=== PATIENT | female | born 2000 | race Caucasian/White ===

== ENCOUNTER 2024-02-05 14:20 | Emergency (ER) | payer MEDICAID, SELFPAY ==
--- NOTE | ~2024-02-05 | CT_ITS ---
EXAMINATION: CT HEAD WITHOUT CONTRAST CLINICAL INFORMATION: Headaches and dizziness and nausea and vomiting COMPARISON: None available. TECHNIQUE: Contiguous axial imaging was performed from the skull base to vertex without intravenous administration of contrast. This CT examination was performed using dose optimization techniques as appropriate, variously including the following: *Automated exposure control *Adjustment of mA and/or kV according to patient size (this includes techniques or standardized protocols for targeted exams where dose is matched to indication/reason for exam; i.e. extremities or head) *Use of iterative reconstruction technique DLP: 630 mGy-cm FINDINGS: No intra or extra-axial fluid collection, hemorrhage, mass, or mass effect. Calvarium intact. CT/CT head/brain wo IV con IMPRESSION: No acute intracranial pathology.
[2024-02-05 14:24] VITALS: BP 142/87; BP 153/107; PULSE 87; PULSE 88; RESP 18; TEMP 36.3; O2SAT 100; O2SAT 97; BMI 49.9
--- NOTE | 2024-02-05 14:24 | ED.DIZZY ---
HPI - Dizziness General Chief Complaint: Dizziness Stated Complaint: LIGHTHEADED, DIZZY, NAUSEA Time Seen by Provider: 02/05/24 21:00 History of Present Illness HPI Narrative: The patient is a normally healthy 23-year-old female on no medications who was at work today. 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 She says she felt fine in the morning and had arrived at work at 08:30. At around 13:00 she was working on her computer screen when she started to feel a pressure-like discomfort in her head that was associated with some dizziness and photophobia. She told her coworkers that she was feeling unwell and eventually she was advised to come to the hospital. She arrived here by ambulance. While waiting to be seen she was given a dose of ondansetron for nausea. She had a long wait and after 5 hours of waiting to be seen by a provider her headache has improved significantly. There is no associated neck stiffness. No fever, sweats, chills. She has not on control pills. She has no history of migraines or headaches. She has never had an episode like this before. She is unaware of any family history of migraines. She is unaware of any family history of aneurysms. Related Data Allergies Allergy/AdvReac Type Severity Reaction Status Date / Time No Known Allergies Allergy Unverified 02/05/24 14:30 [No Known Allergies*] Review of Systems Review of Systems: Yes all other systems are reviewed and are negative [facility] Social History Social History Advance Directives: No Advance Directives Information Provided: No Physical Exam Vital Signs: Vital Signs: Last Vital Signs Temp 98 F 02/05/24 18:50 Pulse 80 02/05/24 18:50 Resp 18 02/05/24 18:50 BP 138/76 02/05/24 18:50 Pulse Ox 99 02/05/24 18:50 O2 Del Method Room Air 02/05/24 18:50 BMI result Body Mass Index 49.9 Const: Other: The patient is awake, alert, pleasant, cooperative. She does not appear in any distress. She looks quite well. HEENT: Other: Face is symmetrical. Mucous membranes moist. Eyes: Other: Pupils are round equal, conjunctivae clear, funduscopic exam was unremarkable, extraocular movements intact Neck: Other: The neck is entirely supple. She can touch her chin to her chest easily without any apparent discomfort. Resp: Effort & Inspection: normal respiratory effort Auscultation: clear to auscultation bilaterally Cardio: Rate: regular rate Rhythm: regular rhythm Heart sounds: S1 normal heart sound present and S2 normal heart sound present Skin: Other: Skin is dry and unremarkable Neuro: Other: The patient is awake and alert with a normal mental status. Cranial nerves 2-12 are intact. She has symmetrical strength in all 4 extremities. No pronator drift. She is neurologically intact. Extrem: Other: No peripheral edema Course Course Course Narrative: This is a rapid medical exam completed by Raissa [employer]GER: Additional HPI, ROS, PE not included below will be deferred to primary provider. From [employer] working as a information receptionist when she had sudden onset nausea, dizziness, head pressure, photophobia. No vomiting and reports headache symptoms have lessened. Received zofran en route by EMS. Concerns of recent abnormal menses. Medications Administered Discontinued Medications Generic Name Dose Route Start Last Admin Trade Name Freq PRN Reason Stop Dose Admin Ketorolac Tromethamine 15 mg 02/05/24 14:26 02/05/24 14:31 Ketorolac Tromethamine 15 Mg/Ml Vial IVPUSH 02/05/24 14:27 15 mg ONCE ONE Administration Medical Decision Making Medical Decision Making [facility] Narrative: The patient is an ordinarily healthy 23-year-old who was on no medications and who was not on control who presents with a headache that occurred while she was at work. She was working at a computer screen when symptoms began. There has been no associated fever or other symptoms. There was associated photophobia. She was sent to the hospital by ambulance. She was given ondansetron and feels significantly better. She had a head CT that was done at around 16:00, within approximately 3 hours of the onset of her headache symptoms. This was a noncontrast head CT. It was negative. Given my low suspicion for a subarachnoid hemorrhage and a negative head CT done within 6 hours I think it is not likely she has a subarachnoid hemorrhage. At the moment she feels much better without significant treatment, her headache is resolved, her neck is supple. I suspect this was a migraine phenomenon. Lab Data 02/05/24 14:51 02/05/24 14:51 Labs: Lab Results 02/05/24 02/05/24 Range/Units 14:51 15:02 WBC 8.9 (4.8-10.8) X10*3/uL RBC 4.81 (4.20-5.50) X10*6/uL Hgb 13.9 (12.0-16.0) g/dl Hct 39.5 (37.0-47.0) % MCV 82.1 (80.0-98.0) fL MCH 28.9 (27.0-33.0) pg MCHC 35.2 H (31.0-35.0) g/dl RDW 12.4 (11.0-16.0) % Plt Count 279 (160-400) X10*3/uL MPV 10.4 (9.4-12.3) fL Immature Gran % (Auto) 0.2 (0.0-0.4) % Neut % (Auto) 54.3 (45-73) % Lymph % (Auto) 34.9 (20-40) % Hitchcock % (Auto) 9.2 (2-11) % Eos % (Auto) 0.9 (0-4) % Baso % (Auto) 0.5 (0-2) % Lymph # (Auto) 3.1 (1.2-4.9) X10*3/uL Hitchcock # (Auto) 0.8 (0.1-1.2) X10*3/uL Eos # (Auto) 0.1 (0.0-0.4) X10*3/uL Baso # (Auto) 0.0 (0.0-0.2) X10*3/uL Abs Immat Gran (auto) 0.02 (0.00-0.03) X10*3/uL Absolute Neuts (auto) 4.8 (2.0-8.3) x10*3/uL Absolute Nucleated RBC 0.000 (0.0-0.012) X10*3/uL Nucleated RBC % (auto) 0.0 (0.0-0.2) /100WBC Sodium 139 (135-145) mmol/L Potassium 4.2 (3.3-5.1) mmol/L Chloride 106 (96-108) mmol/L Carbon Dioxide 24 (22-29) mmol/L Anion Gap 13 (12-20) BUN 14 (9-16) mg/dL Creatinine 0.75 (0.5-1.4) mg/dL Estim Creat Clear Calc 133.3 Estimated GFR > 60 Random Glucose 99 (60-115) mg/dL Calcium 9.2 (8.4-10.2) mg/dL Magnesium 1.9 (1.6-2.6) mg/dL Total Bilirubin 0.3 (0.0-1.0) mg/dL AST 13 (5-31) U/L ALT 9 (0-31) U/L Alkaline Phosphatase 74 (39-117) U/L Total Protein 7.6 (6.5-8.0) g/dL Albumin 4.2 (3.5-5.0) g/dL Urine Color Yellow Urine Appearance Clear Urine pH 7.5 (5.0-9.0) Ur Specific [place] 1.025 (1.005-1.025) Urine Protein Negative (Neg-Trace) mg/dL Urine Glucose (UA) Negative (Negative) mg/dL Urine Ketones Negative (Negative) mg/dL Urine Blood Negative (Negative) Urine Nitrite Negative (Negative) Ur Leukocyte Esterase Negative (Negative) Urine RBC 0-2 (0-2) /HPF Urine WBC 0-5 (0-5) /HPF Ur Squamous Epith Cells 0-2 (0-2) /HPF Urine Bacteria None Seen (None Seen) Hyaline Casts 0-2 (0-2) /LPF Urine Test NEGATIVE (NEGATIVE) Discharge Plan Discharge Clinical Impression: Headache, Dizziness Patient Disposition: Home, Self-Care Additional Instructions: Your testing in the emergency room today seems reassuring. I think it is unlikely your headache represented a dangerous process. This may have been a first-time migraine phenomenon. Please rest and take it easy tonight. Drink lot of fluids. Please plan on following up with your regular doctor to discuss this episode further. Return to the emergency room if significantly worse Referrals: Juana Singleton MD [Primary Care Provider] - (headache, suspect migraine syndrome) Print Language: Persian
[2024-02-05] MEDS: Ketorolac Tromethamine 15 MG/ML VIAL IVPUSH (14:31)
[2024-02-05 14:57] LABS: MANUAL DIFF FLAG NO
[2024-02-05 14:58] LABS: Basophils Percent Auto 0.5 % (0-2); Eosinophils Absolute Auto 0.1 X10*3/uL (0.0-0.4); Eosinophils Percent Auto 0.9 % (0-4); Hematocrit 39.5 % (37.0-47.0); Hemoglobin 13.9 g/dl (12.0-16.0); Imm Gran Abs Auto 0.02 X10*3/uL (0.00-0.03); Imm Gran Pct Auto 0.2 % (0.0-0.4); Lymphocytes Absolute Auto 3.1 X10*3/uL (1.2-4.9); Lymphocytes Percent Auto 34.9 % (20-40); Mean Corpuscular HGB Conc 35.2 g/dl (31.0-35.0); Mean Corpuscular Hemoglobin 28.9 pg (27.0-33.0); Mean Corpuscular Volume 82.1 fL (80.0-98.0); Mean Platelet Volume 10.4 fL (9.4-12.3); Monocytes Absolute Auto 0.8 X10*3/uL (0.1-1.2); Monocytes Percent Auto 9.2 % (2-11); Neutrophils Absolute Auto 4.8 x10*3/uL (2.0-8.3); Neutrophils Percent Auto 54.3 % (45-73); Platelet Count 279 X10*3/uL (160-400); Red Blood Count 4.81 X10*6/uL (4.20-5.50); Red Cell Distribution Width 12.4 % (11.0-16.0); White Blood Count 8.9 X10*3/uL (4.8-10.8)
[2024-02-05 15:14] LABS: Alanine Aminotransferase 9 U/L (0-31); Albumin Level 4.2 g/dL (3.5-5.0); Alkaline Phosphatase 74 U/L (39-117); Anion Gap 13 (12-20); Aspartate Amino Transferase 13 U/L (5-31); Bilirubin Total 0.3 mg/dL (0.0-1.0); Blood Urea Nitrogen 14 mg/dL (9-16); Calcium 9.2 mg/dL (8.4-10.2); Carbon Dioxide 24 mmol/L (22-29); Chloride 106 mmol/L (96-108); Creatinine Clr Calc Pharmacy 133.3; Estimated Glomerular Filt Rate > 60; Glucose Random 99 mg/dL (60-115); Magnesium 1.9 mg/dL (1.6-2.6); Potassium 4.2 mmol/L (3.3-5.1); Sodium 139 mmol/L (135-145); Total Protein 7.6 g/dL (6.5-8.0)
[2024-02-05 15:36] LABS: Appearance Urine Clear; Color Urine Yellow; Glucose Urine UA Negative (Negative); Leukocyte Esterase Urine Negative (Negative); Nitrite Urine Negative (Negative); PH 7.5 (5.0-9.0); Specific Gravity - Urine 1.025 (1.005-1.025); Urine Blood Negative (Negative); Urine Ketones Negative (Negative); Urine Protein Negative (Neg-Trace)
[2024-02-05 15:38] LABS: UPreg QC Valid YES; Urine Pregnancy NEGATIVE (NEGATIVE)
[2024-02-05 15:41] LABS: Bacteria Urine None Seen (None Seen); Hyaline Casts Urine 0-2 /LPF (0-2); RBC Urine 0-2 /HPF (0-2); Squamous Epithelial Cell Urine 0-2 /HPF (0-2); WBC Urine 0-5 /HPF (0-5)
[2024-02-05 18:50] VITALS: BP 138/76; PULSE 80; RESP 18; TEMP 36.6; O2SAT 99
[2024-02-05 21:11] VITALS: BP 138/76; PULSE 84; RESP 18; TEMP 36.4; O2SAT 99
[2024-02-05 21:23] VITALS: BP 138/76; PULSE 84; RESP 18; TEMP 36.4; O2SAT 99
== END 2024-02-05 21:24 | disposition home or self-care (01) ==
PROVIDERS: Nurse Practitioner Family; Emergency Provider Emergency Medicine; PCP General Practice
DX: R42 Dizziness and giddiness (principal); R11.0 Nausea; R51.9 Headache, unspecified; Z79.899 Other long term (current) drug therapy
CPT/HCPCS: 36415; 70450; 80053; 81001; 81025; 83735; 85025; 99283; 99284; J1885

== ENCOUNTER 2024-04-08 17:47 | Emergency (ER) | payer MEDICAID, SELFPAY ==
[2024-04-08 17:56] VITALS: BP 142/82; PULSE 99; RESP 16; TEMP 36.9; O2SAT 97; BMI 33.5
--- NOTE | 2024-04-08 18:04 | ED.GENADULT ---
HPI - General Adult General Chief complaint: Eye Problems Stated complaint: pink eye, sore throat Time Seen by Provider: 04/08/24 18:22 Related Data Previous Rx's ?Medication ?Instructions ?Recorded amoxicillin 500 mg tablet 500 mg PO TID 10 days #30 tabs 04/08/24 erythromycin 5 mg/gram (0.5 %) eye 0.5 inch ophthalmic (eye) QID #3.5 04/08/24 ointment grams Allergies Allergy/AdvReac Type Severity Reaction Status Date / Time No Known Allergies Allergy Verified 04/08/24 17:59 [No Known Allergies*] Review of Systems Review of Systems: Yes all other systems are reviewed and are negative PMF[facility] Social History Social History Advance Directives: No Advance Directives Information Provided: No Physical Exam ED Vital Signs: Vital Signs - 24 hr 04/08/24 17:56 04/08/24 19:19 Temperature 98.4 F 98.4 F Pulse Rate 99 99 Respiratory Rate 16 16 Blood Pressure 142/82 H 142/82 H Pulse Oximetry 97 97 Oxygen Delivery Method Room Air Room Air BMI result Body Mass Index 33.5 Const Other: The patient is awake, alert, pleasant, cooperative. She has some obvious redness to the right eye but otherwise does not appear acutely ill. HENMT Other: Some slight injection to the posterior pharynx. Airway clear. Tympanic membranes are normal bilaterally. Eyes Other: There is injection to the right conjunctiva. Some slight perilimbic flushing on slit-lamp exam. The cornea looks very clear. The anterior chamber looks very clear. Pupils are equal and briskly reactive. Neck Other: No dramatic adenopathy. Resp Effort & Inspection: normal respiratory effort Auscultation: clear to auscultation bilaterally Cardio Rate: regular rate Rhythm: regular rhythm Heart sounds: S1 normal heart sound present and S2 normal heart sound present Skin Other: No rash Neuro Other: The patient is awake, alert, appropriate, nontoxic. Mental status is normal. She is grossly neurologically intact. Course Course Course Narrative: RME: done by CHARIS Ventura. 23-year-old female presents to ED for right eye conjunctivitis since Friday. Patient is placed on antibiotic ointment for only the past 2 days. Patient's secondary complaint is sore throat and right ear pain. Patient denies any change in vision. Patient denies any chest pain or shortness of breath. Strep ordered. Medications Administered Discontinued Medications Generic Name Dose Route Start Last Admin Trade Name Kiersten PRN Reason Stop Dose Admin Amoxicillin 500 mg 04/08/24 18:49 04/08/24 19:05 Amoxicillin 500 Mg Capsule PO 04/08/24 18:50 500 mg ONCE ONE Administration Erythromycin 1 cm 04/08/24 18:47 04/08/24 19:05 Erythromycin Base 0.5% Oph Oin 1 Gm Tube EYE-RIGHT 04/08/24 18:48 1 cm ONCE ONE Administration Medical Decision Making Medical Decision Making [facility] Narrative: The patient presents with worsening right eye conjunctivitis despite polymyxin/trimethoprim drops. She is also complaining of a sore throat and left ear pain. A strep throat swab was sent that is positive. She will be started on amoxicillin 500 mg t.i.d. and she will be started on erythromycin ointment 4 times a day. Lab Data Labs: Lab Results 04/08/24 Range/Units 18:21 Influenza Type A (PCR) NEGATIVE (Negative) Influenza Type B (PCR) NEGATIVE (Negative) RSV RNA Qual (PCR) NEGATIVE (Negative) SARS-CoV-2 RNA (RT-PCR) NEGATIVE (Negative) S. pyogenes GrpA KELSY Positive A (Negative) Discharge Plan Discharge Clinical Impression: Strep throat, Conjunctivitis Patient Disposition: Home, Self-Care Instructions: Strep Throat (ED), Conjunctivitis (ED) Additional Instructions: Both you and your son have tested positive for strep throat. Please take the amoxicillin 3 times a day until done. Please finish the entire prescription. Please also administer the antibiotic ointment. This should be done 4 times a day, approximately every 6 hours. Please stay in touch with your regular doctor for additional advice as needed. Return to the emergency room if worse. Prescriptions: New amoxicillin 500 mg tablet 500 mg PO TID 10 Days Qty: 30 0RF erythromycin 5 mg/gram (0.5 %) ointment 0.5 inch ophthalmic (eye) QID Qty: 3.5 0RF Referrals: Juana Singleton MD [Primary Care Provider] - (Strep throat/conjunctivitis) Stand Alone Forms: Work/School Release Interventions: ED Discharge Assessment Last Done: 04/08/24 19:19 Discharge Date/Time: 04/08/24 19:19 Print Language: French
[2024-04-08 18:33] LABS: IDNOW Serial# 08D9AD1C; Strep A Nucleic Acid Positive (Negative)
--- NOTE | 2024-04-08 18:57 | ED.GENADULT ---
HPI - General Adult General Chief complaint: Eye Problems Stated complaint: pink eye, sore throat Time Seen by Provider: 04/08/24 18:22 History of Present Illness ED Provider: Calvin PEREIRA narrative: The patient is an ordinarily healthy 23-year-old who has had problems with right eye redness, sore throat, and left ear pain for about 3 days. Her 8-year-old son has had a very similar syndrome. Both of the went to an urgent care 2 days ago and they were started on a trimethoprim/polymyxin eyedrops for conjunctivitis. The mother says they have gotten worse since then. No definite fever. No visual change. Related Data Previous Rx's ?Medication ?Instructions ?Recorded amoxicillin 500 mg tablet 500 mg PO TID 10 days #30 tabs 04/08/24 erythromycin 5 mg/gram (0.5 %) eye 0.5 inch ophthalmic (eye) QID #3.5 04/08/24 ointment grams Allergies Allergy/AdvReac Type Severity Reaction Status Date / Time No Known Allergies Allergy Verified 04/08/24 17:59 [No Known Allergies*] Review of Systems Review of Systems: Yes all other systems are reviewed and are negative [facility] Social History Social History Advance Directives: No Advance Directives Information Provided: No Physical Exam ED Vital Signs: Vital Signs - 24 hr 04/08/24 17:56 04/08/24 19:19 Temperature 98.4 F 98.4 F Pulse Rate 99 99 Respiratory Rate 16 16 Blood Pressure 142/82 H 142/82 H Pulse Oximetry 97 97 Oxygen Delivery Method Room Air Room Air BMI result Body Mass Index 33.5 Const Other: The patient is awake and alert. She has obvious right eye conjunctivitis but otherwise does not look acutely ill. HENMT Other: Tympanic membranes are normal bilaterally. The posterior pharynx may have some mild injection. Eyes Other: There is injection to the right conjunctiva. Some slight perilimbic flushing on slit-lamp exam. The cornea looks very clear. The anterior chamber looks very clear. Pupils are equal and briskly reactive. Neck Other: No significant adenopathy Resp Effort & Inspection: normal respiratory effort Auscultation: clear to auscultation bilaterally Cardio Rate: regular rate Rhythm: regular rhythm Heart sounds: S1 normal heart sound present and S2 normal heart sound present Skin Other: Skin is dry and unremarkable, no rash Neuro Other: The patient is awake, alert, pleasant, cooperative. Nontoxic. Mental status is normal. Cranial nerves are grossly intact. She moves her extremities normally and seems grossly neurologically intact. Extrem Other: No peripheral edema Medications Administered Discontinued Medications Generic Name Dose Route Start Last Admin Trade Name Kiersten PRN Reason Stop Dose Admin Amoxicillin 500 mg 04/08/24 18:49 04/08/24 19:05 Amoxicillin 500 Mg Capsule PO 04/08/24 18:50 500 mg ONCE ONE Administration Erythromycin 1 cm 04/08/24 18:47 04/08/24 19:05 Erythromycin Base 0.5% Oph Oin 1 Gm Tube EYE-RIGHT 04/08/24 18:48 1 cm ONCE ONE Administration Medical Decision Making Medical Decision Making [facility] Narrative: The patient presents with worsening right eye conjunctivitis despite polymyxin/trimethoprim drops. She is also complaining of a sore throat and left ear pain. A strep throat swab was sent that is positive. She will be started on amoxicillin 500 mg t.i.d. and she will be started on erythromycin ointment 4 times a day. Lab Data Labs: Lab Results 04/08/24 Range/Units 18:21 Influenza Type A (PCR) NEGATIVE (Negative) Influenza Type B (PCR) NEGATIVE (Negative) RSV RNA Qual (PCR) NEGATIVE (Negative) SARS-CoV-2 RNA (RT-PCR) NEGATIVE (Negative) S. pyogenes GrpA KELSY Positive A (Negative) Discharge Plan Discharge Clinical Impression: Strep throat, Conjunctivitis Patient Disposition: Home, Self-Care Instructions: Strep Throat (ED), Conjunctivitis (ED) Additional Instructions: Both you and your son have tested positive for strep throat. Please take the amoxicillin 3 times a day until done. Please finish the entire prescription. Please also administer the antibiotic ointment. This should be done 4 times a day, approximately every 6 hours. Please stay in touch with your regular doctor for additional advice as needed. Return to the emergency room if worse. Prescriptions: New amoxicillin 500 mg tablet 500 mg PO TID 10 Days Qty: 30 0RF erythromycin 5 mg/gram (0.5 %) ointment 0.5 inch ophthalmic (eye) QID Qty: 3.5 0RF Referrals: Juana Singleton MD [Primary Care Provider] - (Strep throat/conjunctivitis) Stand Alone Forms: Work/School Release Interventions: ED Discharge Assessment Last Done: 04/08/24 19:19 Discharge Date/Time: 04/08/24 19:19 Print Language: Citizen [place]
[2024-04-08] MEDS: Amoxicillin 500 MG CAPSULE PO (19:05)
[2024-04-08] MEDS: Erythromycin Base 0.5% Oph Oin 1 GM TUBE 1 CM EYE-RIGHT (19:05)
[2024-04-08 19:10] LABS: Influenza A PCR NEGATIVE (Negative); Influenza B PCR NEGATIVE (Negative); Resp Syncy Virus RNA Qual PCR NEGATIVE (Negative); SARS COV2 PCR INHOUSE NEGATIVE (Negative)
[2024-04-08 19:19] VITALS: BP 142/82; PULSE 99; RESP 16; TEMP 36.9; O2SAT 97
== END 2024-04-08 19:19 | disposition home or self-care (01) ==
PROVIDERS: Emergency Provider Emergency Medicine; PCP General Practice
DX: J02.0 Streptococcal pharyngitis (principal); H10.89 Other conjunctivitis; Z03.818 Encounter for observation for suspected exposure to other biological agents ruled out
CPT/HCPCS: 0241U; 87651; 99282; 99283

== ENCOUNTER 2024-08-12 | Outpatient (REF) | payer MEDICAID, SELFPAY ==
[2024-08-17 14:33] LABS: C. trachomatis RNA TMA NOT DETECTED (NOT DETECTED); N. gonorrhoeae RNA TMA NOT DETECTED (NOT DETECTED); Trichomonas (NAAT) NOT DETECTED (NOT DETECTED)
== END 2024-08-12 00:01 | disposition home or self-care (01) ==
LOC: HO.LNP
PROVIDERS: Visit Provider Advanced Practice Midwife
DX: Z12.4 Encounter for screening for malignant neoplasm of cervix (principal); Z11.3 Encounter for screening for infections with a predominantly sexual mode of transmission; N93.0 Postcoital and contact bleeding
CPT/HCPCS: 87491; 87591; 87661; 88175

== ENCOUNTER 2024-08-13 09:14 | Outpatient (REF) | payer MEDICAID, SELFPAY ==
[2024-08-13 11:51] LABS: Hematocrit 37.7 % (37.0-47.0); Hemoglobin 13.1 g/dl (12.0-16.0); Mean Corpuscular HGB Conc 34.7 g/dl (31.0-35.0); Mean Corpuscular Hemoglobin 27.9 pg (27.0-33.0); Mean Corpuscular Volume 80.4 fL (80.0-98.0); Mean Platelet Volume 11.1 fL (9.4-12.3); Platelet Count 284 X10*3/uL (160-400); Red Blood Count 4.69 X10*6/uL (4.20-5.50); Red Cell Distribution Width 12.6 % (11.0-16.0); White Blood Count 8.8 X10*3/uL (4.8-10.8)
[2024-08-13 12:28] LABS: TSH reflex Free T4 1.13 uIU/mL (0.32-4.0)
== END 2024-08-13 09:15 | disposition home or self-care (01) ==
LOC: HO.HHCL 09:14
PROVIDERS: Visit Provider Advanced Practice Midwife
DX: N93.0 Postcoital and contact bleeding (principal)
CPT/HCPCS: 36415; 84443; 85027

== ENCOUNTER 2024-08-20 13:13 | Outpatient (REF) | payer MEDICAID, SELFPAY ==
--- NOTE | ~2024-08-20 | US_ITS ---
EXAMINATION: US PELVIS CLINICAL INFORMATION: Abnormal. COMPARISON: None available. TECHNIQUE: Ultrasound of the pelvis is performed using both transabdominal and transvaginal transducers along with Doppler. Transvaginal imaging is performed due to inadequate visualization transabdominally. FINDINGS: Uterus: The uterus is anteverted and measures 11.8 x 4.5 x 6.2 cm. The double wall endometrial thickness is 0.8 mm. The uterus is smooth in contour and has normal myometrial echogenicity. No visible fibroid. Adnexa: Both ovaries are visualized. There is normal color flow to the adnexa. There is no ovarian torsion. There is no pelvic ascites or fluid collection. Right ovary measures 4.2 x 2.4 x 2.9 cm. Volume measured 15.3 mL Left ovary measures 3.0 x 1.9 x 1.9 cm. The volume measured 5.7 mL US/US pelvic and transvaginal IMPRESSION: No abnormal findings Electronically signed by: Agustina Doty MD 08/20/2024 04:07 PM [facility]
== END 2024-08-20 13:14 | disposition home or self-care (01) ==
LOC: HO.US 13:13
PROVIDERS: PCP General Practice; Visit Provider Advanced Practice Midwife
DX: N93.9 Abnormal uterine and vaginal bleeding, unspecified (principal)
CPT/HCPCS: 76830; 76856

== ENCOUNTER 2025-06-03 08:06 | Outpatient (REF) | payer MEDICAID, SELFPAY ==
--- OUTSIDE RECORDS SUMMARY | 2025-06-03 08:28 | XMS_ITS | Encounter Summary ---
Author Organization [employer] Address [address] [facility] 7t [place] [address] Care Team Providers Care Survey Crew Chief Name Role Phone Juana Singleton MD Primary Care Provider [phone] Encounter Details Date Type Department Care Team ([facility] st Contact Info) Description 12/31/2023 Orders Only [facility] MEDICINE [address] [place], [place] [phone] Juana Singleton MD [address] [place], [place] [phone] Social History Tobacco Use Types Packs/Day Years Used Date Smoking Tobacco: Never Smokeless Tobacco: Never Alcohol Use Standard Drinks/Week Comments Never 0 (1 standard drink = 0.6 oz pur e alcohol) Depression Answer Date Recorded Patient Health Questionnaire-9 Score 0 12/12/2023 Patient Health Questionnaire-9 Score 0 12/12/2023 Last PHQ-9: Questionnaire Data Not on file 0 12/12/2023 Housing Stability Answer Date Recorded What is your housing situation today? I have lastmateusz menendez 12/05/[address] you li ve. Do you have problems with any of the following? None of the above 12/05/2023 Food Insecurity Answer Date Recorded Within the past 12 months, y ou worried that your food would run out before you got money to buy more: Never True 12/05/2023 Within the past 12 months,th e food you bought just didn't last and you didn't have enough money to get more: Never True 10/2023 Transportation Answer Date Recorded In the past 12 months, has l ack of transportation kept you from medical appts, meetings, work or from getting things needed for daily living? Yes, it has kept me from medical appointments or getting medications. 12/12/2023 Utilities Answer Date Recorded In the past 12 months, has t he electric, gas, oil or water company threatened to shut off services in your home? No 12/05/2023 Depression Answer Date Recorded Patient Health Questionnaire-2 Score 0 12/12/2023 Comments No Sex and Gender Information Value Date Recorded Sex Assigned at Female 11/12/2023 8:56 AM EST Legal Sex Female 8:55 AM EST Gender Identity Female 11/12/2023 8:56 AM EST Sexual Orientation Straight 11/12/2023 8: 56 AM EST documented as of this encounter Plan of Treatment Upcoming Encounters Date Type Department Care Team (Late st Contact Info) Description 08/03/2025 4:00 PM EDT Telemedicine [facility] MEDICINE [address] [place], [place] [phone] Juana Singleton MD [address] [place] [address] documented as of this encounter Procedures Procedure Name Priority Date/Time Associated Diagnosis Comments STREP A NUCLEIC ACID Routine 04/08/2024 6:21 PM EDT SARS COV2/INFLUENZA A/B AND RSV RNA QL NAAT Routine 04/08/2024 6:21 PM EDT URINALYSIS, COMPLETE, WITH REFLEX TO CULTURE Routine 02/05/2024 3:02 PM EDT HCG, QL, URINE Routine 02/05/2024 3:02 PM EDT CBC WITH AUTO DIFFERENTIAL Routine 02/05/2024 2:51 PM EDT MAGNESIUM Routine 02/05/2024 2:51 PM EDT COMPREHENSIVE METABOLIC PANEL Routine 02/05/2024 2:51 PM EDT documented in this encounter Results * SARS-CoV-2 RNA, Influenza A/B, and RSV RNA, Ql NAAT (04/08/2024 6:21 PM EDT) Influenza A PCR NEGATIVE Negative [facility] Influenza B PCR NEGATIVE Negative [facility] Resp Syncy Virus RNA Qual PCR NEGATIVE Negative [facility] SARS COV2 PCR NEGATIVE Negative [facility] Comment:All test results mus t be correlated with clinical findings.Negative results do not preclude SARS-CoV2, influenza Avirus, influenza B virus and/or RSV infectionand should not be used as the sole basis for treatment orother patient management decisions. Negative results must becombined with clinical observations, patient history, andepidemiological information.This test has not been evaluated for monitoring treatment ofinfection.This test has been authorized by the FDA under an EmergencyUse Authorization (EUA) for use by authorized laboratories.Testing performed on the mPort GeneXpert utilizingreal-time RT-PCR.All SARS CoV2 and positive influenza A/B results arereported to [facility]. 04/08/2024 6:21 PM EDT 04/08/2024 6:23 PM EDT [email or web address] External Data Provider LAB MICROBIOLOGY - GENERAL ORDERABLES Final Result Performing Organization Address City/[facility] Co de Phone Number [facility] [address] [place] [phone] * (ABNORMAL) Strep A Nucleic Acid (04/08/2024 6:21 PM EDT) IDNOW SERIAL# [id number] [facility] Strep A Nucleic Acid Positive(A ) Negative [facility] Comment:All test results mus t be correlated with clinical findings.This test has not been evaluated for monitoring treatment ofinfection.Additional follow-up testing using the culture method isrequired if the result is negative and clinical symptomspersist, or in the event of an acute rheumatic feveroutbreak. 04/08/2024 6:21 PM EDT 04/08/2024 6:23 PM EDT [email or web address] External Data Provider LAB MICROBIOLOGY - GENERAL ORDERABLES Final Result [facility] [address] [place] [address] [phone] * Urinalysis, Complete, with Reflex to Culture (02/05/2024 3:02 PM EDT) Color Urine Yellow [facility] Appearance Urine Clear [facility] PH 7.5 5.0 - 9.0 [facility] Glucose Urine UA Negative Negative mg/dL [facility] Urine Blood Negative Negative [facility] Specific Machias - Urine 1.025 1.005 - 1.025 [facility] Urine Protein Negative Neg-Trace mg/dL [facility] Urine Ketones Negative Negative mg/dL [facility] Nitrite Urine Negative Negative [facility] Leukocyte Esterase Urine Negative Negative [facility] RBC Urine 0-2 0 - 2 /HPF [facility] Urine WBC 0-5 0 - 5 /HPF [facility] Urine Squamous Epithelial Cell 0-2 0 - 2 /HPF [facility] Urine Bacteria None Seen None Seen [facility] Hyaline Casts, Urine 0-2 0 - 2 /LPF [facility] 02/05/2024 3:02 PM EDT 02/05/2024 3:08 PM EDT Narrative [facility] - 02/05/2024 3:45 PM EDT [id number], Clean Catch us Generic External Data Provider LAB URINE ORDERAB LES Final Result Performing Organization Address [facility]/ZIP Co de Phone Number [facility] [address] [place] [phone] * HCG, Qualitative, Urine (02/05/2024 3:02 PM EDT) Urine NEGATIVE NEGATIVE [facility] Comment:This test was develo ped to detect early . Falsenegative results may occur after the 5th - 7th week ofpregnancy when using this test method. If clinicallyindicated, consider a serum hCG. 02/05/2024 3:02 PM EDT 02/05/2024 3:08 PM EDT us Generic External Data Provider LAB URINE ORDERAB LES Final Result Performing Organization Address [facility]/ZIP Co de Phone Number [facility] [address] [place] [phone] * Magnesium (02/05/2024 2:51 PM EDT) Magnesium 1.9 1.6 - 2.6 mg/dL [facility] 02/05/2024 2:51 PM EDT 02/05/2024 2:55 PM EDT Generic External Data Provider LAB BLOOD ORDERAB LES Final Result Performing Organization Address [facility] Co de Phone Number [facility] [address] [place] [phone] * Comprehensive Metabolic Panel (02/05/2024 2:51 PM EDT) Sodium 139 135 - 145 mmol/L [facility] Potassium 4.2 3.3 - 5.1 mmol/L [facility] Chloride 106 96 - 108 mmol/L [facility] Carbon Dioxide 24 22 - 29 mmol/L [facility] Anion Gap 13 12 - 20 [facility] Urea Nitrogen (BUN) 14 9 - 16 mg/dL [facility] Creatinine, Serum 0.75 0.5 - 1.4 mg/dL [facility] Creatinine Clr Calc Pharmacy 133.3 [facility] Comment:Provided height and weight: 152.4 cm,115.9 kg.eGFR (calculated from the MDRD study equation) and eCrCl(calculated from the Cockcroft-Gault equation) are based ondifferent parameters and may not yield comparable results.If eCrCl result is absurd, please check patient'sheight/weight. Estimated Glomerular Filt Rate >60 [facility] Comment:NOTE: For -Am erican individuals, multiply the result by 1.210.Chronic Kidney Disease: Estimated GFR < 60 mL/min/[id number] Kidney Disease: Estimated GFR < 15 mL/min/1.73m2 Glucose 99 60 - 115 mg/dL [facility] Calcium 9.2 8.4 - 10.2 mg/dL [facility] Bilirubin, Total 0.3 0.0 - 1.0 mg/dL [facility] Aspartate Amino Transferase 13 5 - 31 U/L [facility] Alanine Aminotransferase 9 0 - 31 U/L [facility] Total Protein 7.6 6.5 - 8.0 g/dL [facility] Albumin Level 4.2 3.5 - 5.0 g/dL [facility] Alkaline Phosphatase 74 39 - 117 U/L [facility] 02/05/2024 2:51 PM EDT 02/05/2024 2:55 PM EDT us Generic External Data Provider LAB BLOOD ORDERAB LES Final Result [facility] [address] [place] [phone] * (ABNORMAL) CBC auto differential (02/05/2024 2:51 PM EDT) White Blood Count 8.9 4.8 - 10.8 X10*3/uL [facility] Red Blood Count 4.81 4.20 - 5.50 X10*6/uL [facility] Hemoglobin 13.9 12.0 - 16.0 g/dl [facility] Hematocrit 39.5 37.0 - 47.0 % [facility] Mean Corpuscular Volume 82.1 80.0 - 98.0 fL [facility] Mean Corpuscular Hemoglobin 28.9 27.0 - 33.0 pg [facility] Mean Corpuscular HGB Conc 35.2(H) 31.0 - 35.0 g/dl [facility] Red Cell Distribution Width 12.4 11.0 - 16.0 % [facility] Platelet Count 279 160 - 400 X10*3/uL [facility] Mean Platelet Volume 10.4 9.4 - 12.3 fL [facility] Neutrophils Percent Auto 54.3 45 - 73 % [facility] Imm Gran Pct Auto 0.2 0.0 - 0.4 % [facility] Lymphocytes Percent Auto 34.9 20 - 40 % [facility] Monocytes Percent Auto 9.2 2 - 11 % [facility] Eosinophils Percent Auto 0.9 0 - 4 % [facility] Basophils Percent Auto 0.5 0 - 2 % [facility] NRBC Pct Auto 0.0 0.0 - 0.2 /100WBC [facility] Neutrophils Absolute Auto 4.8 2.0 - 8.3 x10*3/uL [facility] Imm Gran Abs Auto 0.02 0.00 - 0.03 X10*3/uL [facility] Lymphocytes Absolute Auto 3.1 1.2 - 4.9 X10*3/uL [facility] Monocytes Absolute Auto 0.8 0.1 - 1.2 X10*3/uL [facility] Eosinophils Absolute Auto 0.1 0.0 - 0.4 X10*3/uL [facility] Basophils Absolute Auto 0.0 0.0 - 0.2 X10*3/uL [facility] NRBC Abs Auto 0.000 0.0 - 0.012 X10*3/uL [facility] 02/05/2024 2:51 PM EDT 02/05/2024 2:55 PM EDT us Generic External Data Provider LAB BLOOD ORDERAB LES Final Result [facility] [address] [place] [phone] documented in this encounter Visit Diagnoses Not on filedocumented in this encounter Additional Health Concerns Assessment Noted Time PHQ-9 Depression Total Score: 0 12/12/19 24 9:11 AM EST documented as of this encounter Care Teams Survey Crew Chief Relationship Specialty Start Date End Date Juana Singleton MD [address] [place] [address] PCP - General Family Medicine 12/12/23 documented as of this encounter
--- OUTSIDE RECORDS SUMMARY | 2025-06-03 08:28 | XMS_ITS | Encounter Summary ---
Author Organization [employer] Address [address] [facility] 7t [place] [address] Care Team Providers Care Community Midwife Name Role Phone Juana Singleton MD Primary Care Provider [phone] Reason for Visit * Reason Onset Date Comments Communication/APPT request 05/31/2025 Mariana ibanez walked into [facility] requesting appt with PCP for weight loss concerns. Patient stated I'd like to speak with PCP for inject-able weight loss medications I've been struggling to lose weight despite efforts including working out at home and trying diet plans. Based on my research, these medications have shown strong results when used alongside lifestyle changes FD stated to patient message will be forward to PCP for an FYI. Encounter Details Date Type Department Care Team ([facility] st Contact Info) Description 05/31/2025 Telephone [facility] [address] [place], [place] [phone] Juana Singleton MD [address] [place], [place] [phone] Communication/APPT request (Patient walked into [facility] requesting appt with PCP for weight loss concerns. Patient stated I'd like to speak with PCP for inject-able weight loss medications I've been struggling to lose weight despite efforts including working out at home and trying diet plans. Based on my research, these medications have shown strong results when used alongside lifestyle changes FD stated to patient message will be forward to PCP for an FYI.) Social History Tobacco Use Types Packs/Day Years Used Date Smoking Tobacco: Never Passive Smoke Exposure: Never Smokeless Tobacco: Never Alcohol Use Standard Drinks/Week Comments Never 0 (1 standard drink = 0.6 oz pur e alcohol) Depression Answer Date Recorded Patient Health Questionnaire-9 Score 0 12/12/2023 Patient Health Questionnaire-9 Score 0 12/12/2023 Last PHQ-9: Questionnaire Data Not on file 0 12/12/2023 Housing Stability Answer Date Recorded What is your housing situation today? I have last menendez 12/05/[address] you [...] AM EST documented as of this encounter Miscellaneous Notes * Telephone Encounter - Anna Dove - 05/31/2025 3:18 PM EDT Patient walked into [facility] requesting appt with PCP for weight loss concerns. Patient stated I'd liketo speak with PCP for inject-able weight loss medications I've been struggling to lose weight despite efforts including working out at home and trying diet plans. Based on my research, these medicatio ns have shown strong results when used alongside lifestyle changes FD stated to patient message will be forward to PCP for an FYI. Appt scheduled for 08/03/2025 with Mani, patient would like sooner appt. Patient verbally agreed. documented in this encounter Plan of Treatment Upcoming Encounters Date Type Department Care Team (Late st Contact Info) Description 08/03/2025 4:00 PM EDT Telemedicine [facility] MEDICINE [address] [place] [address] Juana Singleton MD [address] [place], [place] [phone] documented as of this encounter Visit Diagnoses Not on filedocumented in this encounter Additional Health Concerns Assessment Noted Time PHQ-9 Depression Total Score: 0 12/12/19 24 9:11 AM EST documented as of this encounter Care Teams Community Midwife Relationship Specialty Start Date End Date Juana Singleton MD [address] [place] [address] PCP - General Family Medicine 12/12/23 documented as of this encounter
--- OUTSIDE RECORDS SUMMARY | 2025-06-03 08:28 | XMS_ITS | Encounter Summary ---
Author Organization [employer] Address [address] [facility] 7t [place] [address] Care Team Providers Care Shuttle Repairer Name Role Phone Juana Singleton MD Primary Care Provider [phone] Encounter Details Date Type Department Care Team (Late st Contact Info) Description 01/07/2025 Orders Only [facility] MEDICINE [address] [place], [place] [phone] Corinna Pearson NP [address] [place] [address] Strep pharyngitis (Primary Dx) Social History Tobacco Use Types Packs/Day Years [...] Info) Description 08/03/2025 4:00 PM EDT Telemedicine [facility] MEDICINE [address] [place] [phone] Juana Singleton MD [address] [place] [address] documented as of this encounter Visit Diagnoses Diagnosis Strep pharyngitis- Primary documented in this encounter Additional Health Concerns Assessment Noted Time PHQ-9 Depression Total Score: 0 12/12/19 9:11 AM EST documented as of this encounter Care Teams Shuttle Repairer Relationship Specialty Start Date End Date Juana Singleton MD [address] [place] [phone] PCP - General Family Medicine 12/12/23 documented as of this encounter
--- OUTSIDE RECORDS SUMMARY | 2025-06-03 08:29 | XMS_ITS | Clinical Summary ---
Author Organization [employer] Address [address] [facility] [address] [place] [address] Care Team Providers Care Salesperson [employer] Name Role Phone Juana Singleton MD Primary Care Provider [phone] Allergies No known active allergies Medications SUMAtriptan (Imitrex) 50 MG tablet Take 1 tablet (50 mg) by mouth 1 (one) time if needed for migraine. May repeat dose once in 2 hours if no relief. Do not exceed 2 doses in 24 hours. 9 tablet 2 4 Active Blood Pressure kit 1 each 1 (one) time per week. 1 kit 4 Active Blood Pressure Monitoring (Omron 3 Series BP Monitor) device USE TO CHECK BLOOD PRESSURE ONCE A WEEK 4 Active Vienva 0.1-20 MG-MCG tablet Take 1 tablet by mouth Once per day. Active triamcinolone (Kenalog) 0.1 % creamIndications :Eczema, unspecified type APPLY TOPICALLY IN THE MORNING & AT BEDTIME NEEDED FOR PAIN AND SWELLING 30 g 2 5 Active Active Problems Problem Noted Date Diagnosed Date Chronic migraine 02/12/2024 Assessment & Plan (02/12/2024 1:57 PM EDT): With continued daily HAs -trial tramadol to break current migraine, advised go to ED if no relief -she agrees to start prophylaxis daily -advised start topamax 25 mg nightly and increase to 50 mg if no improvement -trial imitrex prn acute migraine -advised stay well-hydrated -reviewed avoiding migraine triggers -advised keep HIGUERA log and bring to next visit for review -advised rtc if sx change or worsen Eczema 12/12/2023 Encounter for routine adult health examination 0 12/12/2023 Assessment & Plan (12/12/2023 10:35 AM EST): STI tested in one year ago, does not need repeat VZV booster today Start HPV series today Pap due in 2024 History of pre-eclampsia 12/12/2023 Elevated blood pressure read ing in office without diagnosis of hypertension 12/12/2023 Assessment & Plan (02/12/2024 1:58 PM EDT): Repeat BP by me wnl -advised start home BP monitoring, Rx sent Assessment & Plan (12/12/2023 10:34 AM EST): Monitor at home, notify me if Bps consistently > 140/90 will start BP meds Obesity, unspecified 12/29/2006 Overview (03/19/2024): pedi endo 5-09 exogenous obesity F/u labs ,appt monthly Encounters Date Type Department Care Team Description 06/01/2025 Orders Only [facility] [address], [place] [phone] Juana Singleton MD Class 3 severe obesity without serious comorbidity with body mass index (BMI) of 45.0 to 49.9 in adult, unspecified obesity type (Primary Dx) 05/31/2025 Telephone [facility] [address] [place] [address] Juana Singleton MD Communication/APPT request (Patient walked into [facility] requesting [...] be forward to PCP for an FYI.) from Last 3 Months Immunizations Immunization Administration Dates Next Due DTaP 12/02/2002, 0,06/18/1999,03/20/1999,0 01/18/1999 DTaP / HiB / IPV 03/06/2000,06/18/1999, 9,01/18/1999 HPV 9-Valent 12/12/2023(Deferred: Other - vaccine took a while coming up from pharm) Hep B, Adolescent or Pediatric 06/18/1999,1998,1998 IPV 12/02/2002,11/12/1999,03/20/1999 ,01/18/1999 Influenza, IIV3, injectable 05/29/2010 MMR 12/02/2002,03/06/2000 Meningococcal MCV4P [id number] 02/20/2010 Pfizer Covid-19 Vaccine 12+ 11/12/2023 Tdap 02/20/2010 Varicella 12/12/2023,08/01/2000,11/12/1999 Social History Tobacco Use Types Packs/Day Years Used Date Smoking Tobacco: Never Passive Smoke Exposure: Never Smokeless Tobacco: Never Tobacco Cessation:Counseling Given: Not Answered Alcohol Use Standard Drinks/Week Comments Never 0 [...] Orientation Straight 11/12/2023 8: 56 AM EST Last Filed Vital Signs Vital Sign Reading Time Taken Comments Blood Pressure 146/94 01/03/2025 1:13 PM EDT Pulse 107 01/03/2025 1:13 PM EDT Temperature 38.4 C (101.2 F) 01/03/2025 1:13 PM EDT Respiratory Rate 19 01/03/2025 1:13 PM EDT Oxygen Saturation 95% 01/03/2025 1:13 PM EDT Inhaled Oxygen Concentration - - Weight 115 kg (254 lb) 01/03/2025 1:13 PM EDT Height 152.4 cm (5') 01/03/2025 1:13 PM EDT Body Mass Index 49.61 01/03/2025 1:13 PM EDT Plan of Treatment Upcoming Encounters Date Type Department Care Team (Late st Contact Info) Description 08/03/2025 4:00 PM EDT Telemedicine [facility] [address] [place] [phone] Juana Singleton MD [address] [place] [address] Health Maintenance Due Date Last Done Comments Dental Oral Exam 1998 Dental Prophylaxis 1998 Dental X-Ray: Bitewings 1998 Dental X-Ray: Full Mouth 1998 HIV Screening 1998 Lipid Panel 1998 Disability Screening 1998 Alcohol/Substance Use Screening 2010 HPV Vaccines (1 - 3-dose series) 2013 Hepatitis C Screening 2016 COVID-19 Vaccine ( season) 2024 11/12/2023, 06/24/2022 Depression Screening 12/11/2024 12/12/2023, 12/12/19 SDOH Screening 12/11/2024 12/12/2023 Influenza Vaccine (#1) 2025 05/29/2010 Family Planning (PISQ) 08/12/2025 08/12/2024 Tobacco Screening 01/03/2026 01/03/2025 Pap Smear 08/12/2027 08/12/2024 DTaP/Tdap/Td Vaccines (8 - Td or Tdap) 08/19/2032 08/19/2022, 02/20/2010, 12/02/2002, Additional history exists Zoster Vaccines (1 of 2) 2048 RSV Patients and Patients Aged 60 years or older (1 - 1-dose 75+ series) 2073 Hepatitis B Vaccines Completed 06/18/1999, 1998, 1998 HIB Vaccines Completed 03/06/2000, 06/06, 03/20/1999, Additional history exists IPV Vaccines Completed 12/02/2002, 10/1999, 11/12/1999, Additional history exists Meningococcal Vaccine Aged Out 02/20/2010 No luis a tiarra eligible based on patient's age to complete this topic Hepatitis A Vaccines Aged Out No long er eligible based on patient's age to complete this topic Meningococcal B Vaccine Aged Out No l onger eligible based on patient's age to complete this topic Pneumococcal Vaccine: Pediatrics (0 to 5 Years) and At-Risk Patients (6 to 49) Years Aged Out No longer eligible based on patient's age to complete this topic RSV under 20 months Aged Out No longe r eligible based on patient's age to complete this topic Rotavirus Vaccines Aged Out No longer eligible based on patient's age to complete this topic Procedures Procedure Name Priority Date/Time Associated Diagnosis Comments PAP SMEAR Routine 08/12/2024 12:00 AM EST Postcoital bleeding Cervical cancer screening from Last 3 Months or Most Recently Relevant to Health Maintenance Results * Pap Smear (08/12/2024 12:00 AM EST) Swab Cervix uteri structure / Unknown 08/12/2024 08/13/2024 10:20 AM EST [facility] - 08/17/2024 10:30 AM EST ----- ------- Name: Ree Piña Age/Sex: 23/F : 2000 Unit#: [id number] Attend Dr: Re08/12/24 Status: PRE REF Location: [facility] Disch: ----- ------- SPEC : [id number] RECD: 08/13/24 STATUS: RUBINA KASH NUM: [id number] VERA: 08/12/24-[address]: LINDA CARROLL [facility] ENTERED: 08/13/24 SP TYPE: Pap Smr JANETH DR: ORDERED: Pap Smear Interpretation Satisfactory for evaluation. Negative for intraepithelial lesion or malignancy. Coccobacilli consistent with shift in vaginal gladis. Clinical Information LMP: 07/29/2024 Previous PAP test: Unknown date/findings Material Received ThinPrep-Cervical ----- ------- Signed (signature on file) AMINA Bolaños (ASCP) 08/17/24 1030 ----- ------- END OF REPORT Linda Ankit [facility] CYTOLOGY ORDERABLES F inal Result [facility] [address] [place] [address] [phone] from Last 3 Months or Most Recently Relevant to Health Maintenance Insurance [facility] C[facility] DENTAL-[facility] MEDICAID STAND ADULT Care Teams Salesperson Used Cars Relationship Specialty Start Date End Date Juana Singleton MD [address] [place] [phone] PCP - General Family Medicine 12/12/23
--- OUTSIDE RECORDS SUMMARY | 2025-06-03 08:29 | XMS_ITS | Encounter Summary ---
Author Organization [employer] Address [address] [facility] [address] [place] [address] Care Team Providers Care Manager [employer] Name Role Phone Juana Singleton MD Primary Care Provider [phone] Encounter Details Date Type Department Care Team (Late st Contact Info) Description 06/01/2025 Orders Only [facility] [address] [place] [address] Juana Singleton MD [address] [place] [address] Class 3 severe obesity without serious comorbidity with body mass index (BMI) of 45.0 to 49.9 in adult, unspecified obesity type (Primary Dx) Social History Tobacco Use Types [...] Description 08/03/2025 4:00 PM EDT Telemedicine [facility] [address] [place] [phone] Juana Singleton MD [address] [place] [phone] Scheduled Orders Name Type Priority Associated Diagnoses Orde r Schedule Hemoglobin A1c Lab Routine Class 3 severe obesity without serious comorbidity with body mass index (BMI) of 45.0 to 49.9 in adult, unspecified obesity type Expected: 06/01/2025 (Approximate), Expires: 06/01/2026 Comprehensive Metabolic Panel Lab Routine Class 3 severe obesity without serious comorbidity with body mass index (BMI) of 45.0 to 49.9 in adult, unspecified obesity type Expected: 06/01/2025 (Approximate), Expires: 06/01/2026 documented as of this encounter Visit Diagnoses Diagnosis Class 3 severe obesity without serious comorbidity with body mass index (BMI) of 45.0 to 49.9 in adult, unspecified obesity type- Primary documented in this encounter Additional Health Concerns Assessment Noted Time PHQ-9 Depression Total Score: 0 12/12/19 24 9:11 AM EST documented as of this encounter Care Teams Manager Oracle Relationship Specialty Start Date End Date Juana Singleton MD [address] [place] [phone] PCP - General Family Medicine 12/12/23 documented as of this encounter
[2025-06-03 12:43] LABS: Hemoglobin A1C 129.3196 umol/L; Total Hemoglobin (HGBA1C) 3501.0883 umol/L
[2025-06-03 12:53] LABS: Alanine Aminotransferase 11 U/L (0-31); Albumin Level 4.6 g/dL (3.5-5.0); Alkaline Phosphatase 66 U/L (39-117); Anion Gap 12 (12-20); Aspartate Amino Transferase 20 U/L (5-31); Blood Urea Nitrogen 14 mg/dL (9-16); Calcium 9.0 mg/dL (8.4-10.2); Carbon Dioxide 25 mmol/L (22-29); Chloride 109 mmol/L (96-108); Estimated Glomerular Filt Rate > 60; Potassium 4.3 mmol/L (3.3-5.1); Sodium 142 mmol/L (135-145); Total Protein 7.5 g/dL (6.5-8.0)
== END 2025-06-03 08:07 | disposition home or self-care (01) ==
LOC: HO.HHCL 08:06
PROVIDERS: PCP General Practice; Visit Provider General Practice
DX: E66.813 Obesity, class 3 (principal); Z68.42 Body mass index [BMI] 45.0-49.9, adult
CPT/HCPCS: 36415; 80053; 83036